=== PATIENT | female | born 1970 | race African-American/Black ===

== ENCOUNTER 2017-10-14 19:11 | Emergency (ER) | payer SELFPAY | END 2017-10-14 20:39 | disposition home or self-care (01) | LOC: ER 19:11 | DX: M77.11 Lateral epicondylitis, right elbow (principal); E11.9 Type 2 diabetes mellitus without complications; I10 Essential (primary) hypertension; G43.909 Migraine, unspecified, not intractable, without status migrainosus; Z90.49 Acquired absence of other specified parts of digestive tract; Z90.710 Acquired absence of both cervix and uterus | CPT/HCPCS: 29105; 29125; 99283-25 ==

== ENCOUNTER 2021-10-22 17:26 | Emergency (ER) | payer SELFPAY ==
[~2021-10-22] VITALS: Ht 167.6 cm; Wt 108.3 kg
[~2021-10-22 17:26] MED LIST: IBUP-1027 PO; NAPR-683 PO; TRAM-48 PO
[2021-10-22 17:48] VITALS: BP 189/98
[2021-10-22] MEDS ORDERED: PRED20TA PO (18:17)
[2021-10-22] MEDS ORDERED: DEXAMETHASONE SOD PHOS 4 MG/ML VIAL ONE (18:21)
--- NOTE | 2021-10-22 18:31 | PHYS DOC ---
Past Medical History Past Medical History: Diabetes-Type II, Hypertension, Migraines Past Surgical History: Cholecystectomy, Hysterectomy Smoking Status: Never Smoker Alcohol Use: None Drug Use: None General Adult EDM: Chief Complaint: SKIN RASH/ABSCESS HPI: HPI: Patient is a 51 year old female who presents with itchy rash on her hands, right side face surrounding her ear, right shoulder and low back that began 2 days ago. Patient reports the rash started on her bilateral hands while she was at work and has gotten worse since onset. She now reports it is on the right side of her face surrounding her ear, right shoulder and low back on the right side. Initially, patient cannot think of any specific triggers including new foods, new lotions, soaps or detergents. She states that she goes to work and comes home. 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 Patient took 50 mg Benadryl last night and used topical hydrocortisone cream today. She has no other complaints at this time. Review of Systems: Review of Systems: Constitutional: Denies fever, chills or generalized weakness Eyes: Denies change in visual acuity, visual field deficits or discharge HENT: Denies ear pain, nasal congestion or sore throat Respiratory: Denies cough or shortness of breath Cardiovascular: Denies chest pain, palpitations or edema GI: Denies abdominal pain, nausea, vomiting, bloody stools or diarrhea : Denies dysuria or hematuria Musculoskeletal: Denies back pain or joint pain Integument: See HPI Neurologic: Denies headache, focal weakness or sensory changes Heart Score: C/O Chest Pain: No Allergies: Allergies: Allergies Coded Allergies Type Severity Reaction Last Updated Verified No Known Drug Allergies 04/16/14 No Physical Exam: PE: Constitutional: Well developed, well nourished, no acute distress, non-toxic appearance. HENT: Normocephalic, atraumatic, bilateral external ears normal, oropharynx moist, no oral exudates, nose normal. Eyes: EOMI, conjunctiva normal, no discharge. Neck: Normal range of motion, no tenderness, supple, no stridor. Skin: Raised, erythematous, maculopapular rash noted on dorsal surface of bilateral hands which stops at the wrist flexion, right periauricular area, right shoulder with clearance beneath bra strap and low back with abrupt border that stops at the underwear line. Skin otherwise warm, dry, no erythema, no abrasion, no laceration. Extremities: No tenderness, no cyanosis, no clubbing, ROM intact, no deformities. Neurologic: Alert and oriented x4, steady and symmetrical gait, no focal deficits noted. Current Patient Data: Vital Signs: Vital Signs Date Time Temp Pulse Resp B/P (MAP) Pulse Ox O2 Delivery O2 Flow Rate FiO2 10/22/21 17:48 98.5 86 16 189/98 (128) 100 Room Air 98.5 Course & Med Decision Making: Course & Med Decision Making Pertinent Labs and Imaging studies reviewed. (See chart for details) Patient is a 51-year-old female who presents with symptoms consistent with contact dermatitis. Patient will be provided with Benadryl, Pepcid and dexamethasone here the department. She will be discharged home with instruction to use Pepcid and Benadryl per box instructions. Additionally, she will be provided with a 5-day prednisone taper. Patient's blood pressure is elevated here in the department, however she shows no sign of acute endorgan damage at this time. Patient has not taken her blood pressure medication today. She is instructed to take it upon returning home. She should also follow-up with her primary care provider in the next 2-3 days for follow-up of her elevated blood pressure reading. Patient is advised to keep a blood pressure log to take with her to that appointment.Patient is given return precautions. She understands and is agreeable to discharge plan. Dirk Disclaimer: Dirk Disclaimer: This electronic medical record was generated, in whole or in part, using a voice recognition dictation system. Departure Departure Impression: Primary Impression: Allergic contact dermatitis Qualified Codes: L23.9 - Allergic contact dermatitis, unspecified cause Additional Impression: Elevated blood pressure reading Disposition: HOME / SELF CARE / HOMELESS Condition: IMPROVED Referrals: NO PCP (PCP) Patient Instructions: Allergy Skin Testing, Contact Dermatitis, [id number] Additional Instructions: EMERGENCY DEPARTMENT GENERAL DISCHARGE INSTRUCTIONS Thank you for coming to [facility] Emergency Department (ED) today and trusting us with you care. We trust that you had a positive experience in our Emergency Department. If you wish to speak to the department management, you may call the director at . YOUR FOLLOW UP INSTRUCTIONS ARE FOLLOWS: 1. Follow up with your primary care doctor. If you do not have a primary doctor, please ask for a resource list of physicians or clinics that may be able to assist you with follow up care. - Keep a log of your blood pressure daily to bring with you to your appointment to aid in medication regimen changes, if any are necessary. - Allergy testing may be available in primary care offices, depending on office capability. If not, a referral may be provided for further evaluation of allergic triggers. 2. The emergency provider has interpreted your imaging studies, if any were ordered. The radiology airport operations specialist also reviewed them. If there is a change in the findings, you will be notified in 48 hours when at all possible. 3. If a lab test or culture has been done, your results will be reviewed and you will be notified if you need a change in treatment. 4. Follow instructions verbalized to you and refer to the printouts if needed. - Benadryl per box instructions, may take 2 (two) tablets before bed - Prednisone as directed - Unscented lotion/ointment/cream for skin itching/dryness (examples eucerin, aquaphor) ADDITIONAL INSTRUCTIONS AND INFORMATION: 1. Your care today has been supervised by a physician who is specially trained in emergency care. Many problems require more than one evaluation for a complete diagnosis and treatment. We recommend that you schedule your follow up appointment as recommended to ensure complete treatment of you illness or injury. If you are unable to obtain follow up care and continue to have a problem, or if your condition worsens, we recommend that you return to the ED. 2. We are not able to safely determine your condition over the phone nor are we able to give sound medical advice over the phone. For these safety reasons, if you call for medical advice we will ask you to come to the ED for further evaluation. 3. If you have any questions regarding these discharge instructions please call the ED at . SAFETY INFORMATION: In the interest of safety, wellness, and injury prevention; we encourage you to wear your seat belt, if you smoke; quite smoking, and we encourage family to use a protective helmet for bicycling and other sporting events that present an increased risk for head injury. IF YOUR SYMPTOMS WORSEN OR NEW SYMPTOMS DEVELOP, OR YOU HAVE CONCERNS ABOUT YOUR CONDITION; OR IF YOUR CONDITION WORSENS WHILE YOU ARE WAITING FOR YOUR FOLLOW UP APPOINTMENT; EITHER CONTACT YOUR PRIMARY CARE DOCTOR, THE PHYSICIAN WHOSE NAME AND NUMBER YOU WERE GIVEN, OR RETURN TO THE ED IMMEDIATELY. Scripts Prednisone (PREDNISONE) 20 Mg Tablet 1 TAB PO UD for 5 Days, #11 TAB 3 tablets by mouth days 1-2 2 tablets by mouth days 3-4 1 tablet by mouth days 5 Prov: SUHA GAINES 10/22/21 SUHA GAINES Oct 22, 2021 18:31
[2021-10-22] MEDS ORDERED: FAMOTIDINE 20 MG TABLET. PO ONE (18:45)
[2021-10-22] MEDS ORDERED: DEXAMETHASONE SOD PHOS 4 MG/ML VIAL IM ONE (18:45)
[2021-10-22] MEDS ORDERED: DEXAMETHASONE SOD PHOS 4 MG/ML VIAL IVP ONE (18:45)
[2021-10-22] MEDS ORDERED: diphenhydrAMINE 50 MG/ML VIAL IM ONE (18:45)
== END 2021-10-22 18:50 | disposition home or self-care (01) ==
LOC: ER 17:26
DX: L23.9 Allergic contact dermatitis, unspecified cause (principal); I10 Essential (primary) hypertension; E11.9 Type 2 diabetes mellitus without complications; G43.909 Migraine, unspecified, not intractable, without status migrainosus
CPT/HCPCS: 96372; 99284; J1100; J1200